=== PATIENT | female | born 1980 | race Caucasian/White ===

== ENCOUNTER 2016-12-11 01:53 | Emergency (ER) | payer MEDICAID ==
[~2016-12-11] VITALS: Ht 165.1 cm; Wt 60.5 kg
[2016-12-11 01:55] VITALS: BP 108/67
[2016-12-11] MEDS ORDERED: FLUT1BLS INH (02:44)
[2016-12-11] MEDS ORDERED: ALBU18HF IN (02:44)
== END 2016-12-11 05:08 | disposition home or self-care (01) ==
LOC: ED 03:55
DX: S62.342A Nondisplaced fracture of base of third metacarpal bone, right hand, initial encounter for closed fracture (principal); S62.352A Nondisplaced fracture of shaft of third metacarpal bone, right hand, initial encounter for closed fracture; S62.344A Nondisplaced fracture of base of fourth metacarpal bone, right hand, initial encounter for closed fracture; S62.354A Nondisplaced fracture of shaft of fourth metacarpal bone, right hand, initial encounter for closed fracture; J45.909 Unspecified asthma, uncomplicated; W19.XXXA Unspecified fall, initial encounter; Y93.89 Activity, other specified; Y92.009 Unspecified place in unspecified non-institutional (private) residence as the place of occurrence of the external cause; Y99.8 Other external cause status
CPT/HCPCS: 29125

== ENCOUNTER 2016-12-30 01:37 | Emergency (ER) | payer MEDICAID ==
[~2016-12-30] VITALS: Ht 165.1 cm; Wt 59.4 kg
[~2016-12-30 01:37] MED LIST: ALBU18HF IN; FLUT1BLS INH
[2016-12-30] MEDS ORDERED: AZITHROMYCIN 500 MG TABLET PO ONE (02:30)
[2016-12-30] MEDS ORDERED: CEFTRIAXONE 250 MG IM ONE (02:30)
[2016-12-30] MEDS ORDERED: AZITHROMYCIN 250 MG TABLET ONE (02:57)
[2016-12-30] MEDS ORDERED: CEFTRIAXONE 250 MG ONE (02:57)
[2016-12-30 03:07] VITALS: BP 114/61
== END 2016-12-30 04:22 | disposition home or self-care (01) ==
LOC: ED 01:47
DX: J45.41 Moderate persistent asthma with (acute) exacerbation (principal); N89.8 Other specified noninflammatory disorders of vagina
CPT/HCPCS: 71020; 87210; 87491; 87591; 87808; 93005; 96372; 99285; J0696; J7512

== ENCOUNTER 2018-04-03 08:28 | Emergency (ER) | payer MEDICAID ==
[~2018-04-03] VITALS: Ht 165.1 cm; Wt 65.7 kg
[2018-04-03] MEDS ORDERED: PRED5TAB PO (08:49)
[2018-04-03] MEDS ORDERED: ALBUTEROL/IPRATROPIUM 2.5MG/0.5MG, 3 ML ONE (08:57)
[2018-04-03] MEDS ORDERED: ALBUTEROL/IPRATROPIUM 2.5MG/0.5MG, 3 ML NPPB PRN (09:00)
[2018-04-03 09:14] VITALS: BP 111/65
== END 2018-04-03 09:57 | disposition home or self-care (01) ==
LOC: ED 08:49
DX: J45.41 Moderate persistent asthma with (acute) exacerbation (principal); R06.00 Dyspnea, unspecified
CPT/HCPCS: 93005; 94640; 99283; J7512; J7620

== ENCOUNTER 2018-04-03 15:04 | Inpatient (IN) | payer MEDICAID ==
[~2018-04-03] VITALS: Ht 165.1 cm; Wt 62.6 kg
[~2018-04-03 15:04] MED LIST changes: +PRED5TAB PO
--- NOTE | 2018-04-03 15:29 | NUR ---
PT ARRIVES TODAY FROM HOME WITH RESP DISTRESS WHAT SHE REPORTS AN ASTHMA ATTACK. PT WAS SEEN HERE THIS MORNING FOR THE SAME. EXPIRATORY WHEEZZING APPRECIAED THROUGHOUT LUNGS. PT CONNECTED TO MONTIORS AND CALL LIGHT IN REACH. AWAITING FURTHER ORDERS. RT PAGED.
[2018-04-03] MEDS ORDERED: ALBUTEROL/IPRATROPIUM 2.5MG/0.5MG, 3 ML NPPB ONE (15:30)
[2018-04-03] MEDS ORDERED: ALBUTEROL/IPRATROPIUM 2.5MG/0.5MG, 3 ML ONE (15:37)
--- NOTE | 2018-04-03 17:00 | NUR ---
PIV PLACED AFTER PT WALKED TO RESTROOM. VSS
[2018-04-03] MEDS ORDERED: SODIUM CHLORIDE 0.9% 1,000 ML IV SCH (17:48)
--- NOTE | 2018-04-03 17:49 | NUR ---
REPORT TO AUGUSTIN BROWN.
[2018-04-03] MEDS: HEPARIN 5,000 UNITS/ML, 1ML SQ SCH ×2 (18:00→23:41)
[2018-04-03] MEDS ORDERED: LABETALOL 5MG/ML, 20ML IVPush PRN (18:00)
[2018-04-03] MEDS ORDERED: hydrALAzine 20 MG/ML, 1ML IVPush PRN (18:00)
[2018-04-03] MEDS ORDERED: ACETAMINOPHEN 325 MG TABLET PO PRN (18:00)
[2018-04-03] MEDS ORDERED: methylPREDNISolone SOD SUCC 125 MG/2 ML IVPush ONE (18:00)
[2018-04-03] MEDS ORDERED: ONDANSETRON ODT 4 MG PO PRN (18:00)
[2018-04-03] MEDS ORDERED: ONDANSETRON 2MG/ML, 2ML IVPush PRN (18:00)
[2018-04-03] MEDS: ALBUTEROL SULFATE 2.5 MG/3 ML NPPB SCH ×2 (18:30→21:06)
[2018-04-03] MEDS ORDERED: ALBUTEROL SULFATE 2.5 MG/3 ML NPPB PRN (18:30)
[2018-04-03 18:40] VITALS: BP 110/67
[2018-04-03] MEDS: methylPREDNISolone SOD SUCC 125 MG/2 ML IVPush SCH (20:57)
[2018-04-03] MEDS: BUDESONIDE 0.5 MG/2 ML INHA INH SCH (21:00)
[2018-04-03] MEDS: GUAIFENESIN/DM 200-20MG, 10ML UDC PO PRN (21:28)
[2018-04-04 01:32] VITALS: BP 119/69
[2018-04-04] MEDS: ALBUTEROL SULFATE 2.5 MG/3 ML NPPB SCH ×6 (01:59→22:47)
[2018-04-04] MEDS: GUAIFENESIN/DM 200-20MG, 10ML UDC PO PRN ×2 (04:36→14:33)
[2018-04-04 05:10] LABS: RAPID INFLUENZA A Negative (Negative); RAPID INFLUENZA B Negative (Negative)
[2018-04-04] MEDS: BUDESONIDE 0.5 MG/2 ML INHA INH SCH ×2 (07:30→19:03)
[2018-04-04 07:32] VITALS: BP 105/56
[2018-04-04] MEDS: HEPARIN 5,000 UNITS/ML, 1ML SQ SCH ×2 (08:19→17:42)
[2018-04-04] MEDS: methylPREDNISolone SOD SUCC 125 MG/2 ML IVPush SCH ×2 (08:30→20:35)
[2018-04-04] MEDS ORDERED: FLUTICASONE/VILANTEROL 200-25MCG/INH INH SCH (09:00)
[2018-04-04] MEDS: DOXYCYCLINE 100MG TABLET PO SCH ×2 (09:38→20:35)
[2018-04-04] MEDS: GUAIFENESIN ER 600 MG TABLET PO SCH ×2 (09:38→20:35)
[2018-04-04 15:07] VITALS: BP 101/63
[2018-04-04 20:03] VITALS: BP 115/66
[2018-04-05 00:40] VITALS: BP 108/67
[2018-04-05] MEDS: HEPARIN 5,000 UNITS/ML, 1ML SQ SCH ×3 (01:12→16:23)
[2018-04-05] MEDS: ALBUTEROL SULFATE 2.5 MG/3 ML NPPB SCH ×6 (02:41→22:39)
[2018-04-05 06:47] VITALS: BP 101/64
[2018-04-05] MEDS: BUDESONIDE 0.5 MG/2 ML INHA INH SCH ×2 (07:28→21:00)
[2018-04-05 08:42] LABS: MEAN CORPUSCULAR HEMOGLOBIN 31.4 pg (27.0-34.8); MEAN CORPUSCULAR HGB CONC 33.9 g/dL (32.4-35.8); MEAN CORPUSCULAR VOLUME 92.6 fL (80-100); PLATELET COUNT 250 x10^3/uL (130-400); RED BLOOD COUNT 4.45 x10^6/uL (3.82-5.3); RED CELL DISTRIBUTION WIDTH 13.4 % (9.6-15.2)
[2018-04-05 08:50] LABS: ANION GAP 7 mmol/L (5-15); CALCIUM 8.9 mg/dL (8.5-10.1); CHLORIDE 106 mmol/L (98-107); CREATININE 0.84 mg/dL (0.55-1.02)
[2018-04-05] MEDS: BENZONATATE 100 MG CAPSULE PO SCH ×3 (08:56→20:32)
[2018-04-05] MEDS: GUAIFENESIN ER 600 MG TABLET PO SCH ×2 (08:56→20:32)
[2018-04-05] MEDS: methylPREDNISolone SOD SUCC 125 MG/2 ML IVPush SCH (08:56)
[2018-04-05] MEDS: DOXYCYCLINE 100MG TABLET PO SCH ×2 (08:56→20:32)
[2018-04-05 09:02] LABS: MD YES
[2018-04-05 09:03] LABS: LYMPH#(MANUAL) 2.34 x10^3/uL (1-3.4); LYMPHS% (MANUAL) 10 % (22-44); MONOS#(MANUAL) 0.23 x10^3/uL (0.3-2.7); MONOS% (MANUAL) 1 % (2-9); SEG#(MANUAL) 20.83 x10^3/uL (1.8-6.8); SEGS% (MANUAL) 89 % (42-75)
[2018-04-05 09:04] LABS: <PLATELET ESTIMATE> ADEQUATE; <RBC MORPHOLOGY> NORMAL; LARGE PLATELETS 1+
[2018-04-05] MEDS ORDERED: [UNRECOGNIZED DRUG - REMARK] XX PRN (11:30)
[2018-04-05 14:32] VITALS: BP 104/64
[2018-04-05 19:21] VITALS: BP 111/66
[2018-04-06 01:14] VITALS: BP 107/69
[2018-04-06] MEDS: HEPARIN 5,000 UNITS/ML, 1ML SQ SCH ×2 (02:00→08:55)
[2018-04-06] MEDS: ALBUTEROL SULFATE 2.5 MG/3 ML NPPB SCH ×4 (03:00→15:00)
[2018-04-06] MEDS: BUDESONIDE 0.5 MG/2 ML INHA INH SCH (07:00)
[2018-04-06 07:45] VITALS: BP 108/65
[2018-04-06] MEDS ORDERED: GUAI600T31 PO (08:29)
[2018-04-06] MEDS ORDERED: PRED20TA PO (08:29)
[2018-04-06] MEDS ORDERED: DOXY100T PO (08:29)
[2018-04-06] MEDS ORDERED: BENZ-17 PO (08:29)
[2018-04-06] MEDS ORDERED: FLUT1BLS INH (08:29)
[2018-04-06] MEDS: GUAIFENESIN ER 600 MG TABLET PO SCH (08:52)
[2018-04-06] MEDS: DOXYCYCLINE 100MG TABLET PO SCH (08:53)
[2018-04-06] MEDS: BENZONATATE 100 MG CAPSULE PO SCH (08:54)
== END 2018-04-06 15:15 | disposition home or self-care (01) | DRG 189 ==
LOC: ED 15:38 → EDIP 17:15 → 3NE 17:39 → DCLOUNGE 04-06 15:00
PROVIDERS: ADMIT Internal Medicine; ATTEND Internal Medicine
DX: J96.01 Acute respiratory failure with hypoxia (principal); J45.41 Moderate persistent asthma with (acute) exacerbation; R00.0 Tachycardia, unspecified
CPT/HCPCS: 36415; 87400; 99285; J7613; J7620; J7626; 71045; 80048; 85025; 85379; 93005; 94640; G0378; J2930; J7030; J7512